=== PATIENT | female | born 1960 | race Caucasian/White ===

== ENCOUNTER 2021-06-07 09:25 | Inpatient (IN) | payer BC ==
[~2021-06-07] VITALS: Ht 162.6 cm; Wt 72.6 kg
[~2021-06-07 09:25] MED LIST: AMBIEN5 MG PO; AMLODIPINE BESYL5 MG PO; CARTIA XT180 MG PO; CARVEDILOL12.5 MG PO; ELIQUIS PO; LASIX20 MG PO; LIPITOR10 MG PO; SERTRALINE HCL50 MG PO; SODIUM CHLORIDE1 GM PO; SPIRONOLACTONE25 MG PO
[2021-06-07 09:56] LABS: BASOPHILS % 0.2 % (0.0-1.0); EOSINOPHILS # (AUTO) 0.1 (0.0-0.4); EOSINOPHILS % 0.6 % (0.0-6.0); HEMATOCRIT 36.3 % (34.2-44.1); HEMOGLOBIN 12.6 g/dL (12.0-16.0); LYMPHOCYTES # (AUTO) 1.1 (1.0-3.2); LYMPHOCYTES % 8.5 % (18.0-39.1); MEAN CORPUSCULAR HEMOGLOBIN 35.4 pg (28-32); MEAN CORPUSCULAR HGB CONC 34.7 g/dL (31-35); MONOCYTES # (AUTO) 0.9 (0.2-0.8); MONOCYTES % 7.2 % (4.4-11.3); NEUTROPHILS # (AUTO) 10.6 (2.1-6.9); NEUTROPHILS % 80.7 % (38.7-80.0); PLATELET COUNT 266 x10e3/uL (140-360); RED BLOOD COUNT 3.56 x10e6/uL (3.6-5.1); RED CELL DISTRIBUTION WIDTH 12.1 % (11.7-14.4)
[2021-06-07] MEDS ORDERED: SODIUM CHLORIDE 0.9% 500ML 500 ML IV ONE (11:00)
[2021-06-07 11:12] LABS: CLARITY,URINE CLEAR (CLEAR); COLOR,URINE YELLOW (YELLOW)
[2021-06-07 11:13] LABS: BACTERIA,URINE FEW /HPF; EPITHELIAL CELLS,URINE FEW /LPF; KETONES,URINE NEGATIVE (NEGATIVE); LEUKOCYTE ESTERASE ,URINE NEGATIVE (NEGATIVE); NITRITE,URINE NEGATIVE (NEGATIVE); PROTEIN,URINE DIPSTICK NEGATIVE (NEGATIVE); URINE UROBILINOGEN 0.2 mg/dL (0.2 - 1); WBC,URINE (MAN) 0-5 /HPF (0-5)
[2021-06-07 11:28] LABS: ALBUMIN 3.6 g/dL (3.5-5.0); ALBUMIN/GLOBULIN RATIO 1.1 (0.8-2.0); CALCIUM 8.6 mg/dL (8.4-10.2); CREATININE, SERUM 0.82 mg/dL (0.57-1.11)
[2021-06-07] MEDS ORDERED: Morphine 4mg Syringe 4 MG/ML INJ IV STA (12:29)
[2021-06-07] MEDS ORDERED: ONDANSETRON HCL INJ 2MG/ML 2ML 2 MG/ML VIAL IV STA (12:29)
[2021-06-07] MEDS: CEFTRIAXONE 1 GM in SODIUM CHLORIDE 0.9% 50ML 50 ML IV SCH (13:03)
[2021-06-07] MEDS ORDERED: ALBUTEROL SULF 0.083% NEB SOLN 3 ML NEB NEB PRN (13:15)
[2021-06-07 14:16] VITALS: BP 144/85
[2021-06-07] MEDS ORDERED: HYDROXYZINE HCL25 MG PO (14:22)
[2021-06-07] MEDS ORDERED: NEURONTIN300 MG PO (14:22)
[2021-06-07] MEDS ORDERED: ACETAMIN-CODE12.5 ML (14:29)
[2021-06-07 14:30] VITALS: BP 144/85
[2021-06-07] MEDS ORDERED: GADOBENATE DIMEGLUMINE 1 ML IV ONE (14:33)
[2021-06-07] MEDS ORDERED: tylenol 3 PO (14:34)
[2021-06-07] MEDS ORDERED: TYLENOL PO PRN (14:45)
[2021-06-07] MEDS ORDERED: HYDROXYZINE HCL 25 MG TAB PO PRN (14:45)
[2021-06-07 15:00] VITALS: BP 144/85
[2021-06-07] MEDS: SODIUM CHLORIDE 0.9% 1000ML 1,000 ML IV SCH ×2 (15:40→23:12)
[2021-06-07] MEDS: ACETAMINOPHEN/CODEINE 300MG - 30MG TAB PO PRN ×2 (15:50→23:12)
[2021-06-07] MEDS: GABAPENTIN 300 MG CAP PO SCH ×2 (16:00→20:21)
[2021-06-07] MEDS: SPIRONOLACTONE 25 MG TAB PO SCH (16:01)
[2021-06-07] MEDS: CARVEDILOL 12.5 MG TAB PO SCH (16:02)
[2021-06-07 16:57] LABS: CREATINE KINASE MB 0.9 ng/mL (0-5.0)
[2021-06-07] MEDS: HYDROMORPHONE 1MG/1ML INJ IV PRN ×2 (17:00→20:21)
[2021-06-07 19:54] VITALS: BP 144/85
[2021-06-07 20:00] VITALS: BP 141/80
[2021-06-07] MEDS: ZOLPIDEM TARTRATE 10 MG TAB PO PRN (23:12)
[2021-06-08] VITALS (9 sets, daily range): BP systolic 106–150; BP diastolic 46–89
[2021-06-08] MEDS: HYDROMORPHONE 1MG/1ML INJ IV PRN ×6 (02:45→21:31)
[2021-06-08] MEDS: SODIUM CHLORIDE 0.9% 1000ML 1,000 ML IV SCH ×3 (06:11→21:15)
[2021-06-08] MEDS: ACETAMINOPHEN/CODEINE 300MG - 30MG TAB PO PRN ×2 (06:30→13:00)
[2021-06-08 07:22] LABS: BASOPHILS % 0.5 % (0.0-1.0); EOSINOPHILS # (AUTO) 0.4 (0.0-0.4); EOSINOPHILS % 4.3 % (0.0-6.0); HEMATOCRIT 37.2 % (34.2-44.1); HEMOGLOBIN 12.4 g/dL (12.0-16.0); LYMPHOCYTES # (AUTO) 1.1 (1.0-3.2); LYMPHOCYTES % 13.3 % (18.0-39.1); MEAN CORPUSCULAR HEMOGLOBIN 35.1 pg (28-32); MEAN CORPUSCULAR HGB CONC 33.3 g/dL (31-35); MEAN CORPUSCULAR VOLUME 105.4 fL (81-99); MONOCYTES # (AUTO) 0.7 (0.2-0.8); MONOCYTES % 8.3 % (4.4-11.3); NEUTROPHILS # (AUTO) 5.8 (2.1-6.9); NEUTROPHILS % 71.1 % (38.7-80.0); PLATELET COUNT 246 x10e3/uL (140-360); RED BLOOD COUNT 3.53 x10e6/uL (3.6-5.1); RED CELL DISTRIBUTION WIDTH 12.5 % (11.7-14.4)
[2021-06-08 07:41] LABS: ALBUMIN 3.4 g/dL (3.5-5.0); ALBUMIN/GLOBULIN RATIO 1.1 (0.8-2.0); ANION GAP 14.1 mmol/L (8-16); CALCIUM 8.7 mg/dL (8.4-10.2); CREATININE, SERUM 0.81 mg/dL (0.57-1.11); POTASSIUM 4.1 mmol/L (3.5-5.1)
[2021-06-08 07:53] LABS: CREATINE KINASE MB 0.7 ng/mL (0-5.0)
[2021-06-08] MEDS ORDERED: AMLODIPINE BESYLATE 5 MG TAB PO SCH (09:00)
[2021-06-08] MEDS: SPIRONOLACTONE 25 MG TAB PO SCH ×2 (09:34→17:24)
[2021-06-08] MEDS: CEFTRIAXONE 1 GM in SODIUM CHLORIDE 0.9% 50ML 50 ML IV SCH (09:34)
[2021-06-08] MEDS: FUROSEMIDE 20 MG TAB PO SCH (09:44)
[2021-06-08] MEDS: DILTIAZEM HCL 180 MG CAP ER PO SCH (09:44)
[2021-06-08] MEDS: CARVEDILOL 12.5 MG TAB PO SCH ×2 (09:44→16:53)
[2021-06-08] MEDS: GABAPENTIN 300 MG CAP PO SCH ×3 (09:44→21:30)
[2021-06-08] MEDS: SODIUM CHLORIDE 1 GM TAB PO SCH (09:44)
[2021-06-09] VITALS (9 sets, daily range): BP systolic 110–131; BP diastolic 71–80
[2021-06-09] MEDS: ZOLPIDEM TARTRATE 10 MG TAB PO PRN ×2 (00:28→20:49)
[2021-06-09] MEDS: HYDROMORPHONE 1MG/1ML INJ IV PRN ×6 (00:28→22:45)
[2021-06-09] MEDS: SODIUM CHLORIDE 0.9% 1000ML 1,000 ML IV SCH ×4 (00:28→20:39)
[2021-06-09] MEDS: CARVEDILOL 12.5 MG TAB PO SCH ×2 (08:26→17:14)
[2021-06-09] MEDS: CEFTRIAXONE 1 GM in SODIUM CHLORIDE 0.9% 50ML 50 ML IV SCH (08:47)
[2021-06-09] MEDS: SPIRONOLACTONE 25 MG TAB PO SCH ×2 (08:47→17:14)
[2021-06-09] MEDS: DILTIAZEM HCL 180 MG CAP ER PO SCH (08:48)
[2021-06-09] MEDS: SODIUM CHLORIDE 1 GM TAB PO SCH (08:48)
[2021-06-09] MEDS: FUROSEMIDE 20 MG TAB PO SCH (08:48)
[2021-06-09] MEDS: GABAPENTIN 300 MG CAP PO SCH ×3 (08:48→20:39)
[2021-06-10] VITALS (7 sets, daily range): BP systolic 100–114; BP diastolic 67–71
[2021-06-10] MEDS: HYDROMORPHONE 1MG/1ML INJ IV PRN ×5 (02:54→20:40)
[2021-06-10] MEDS: SODIUM CHLORIDE 0.9% 1000ML 1,000 ML IV SCH ×2 (03:16→12:25)
[2021-06-10 05:58] LABS: BASOPHILS # (AUTO) 0.1 (0.0-0.1); BASOPHILS % 0.8 % (0.0-1.0); EOSINOPHILS # (AUTO) 0.3 (0.0-0.4); EOSINOPHILS % 3.8 % (0.0-6.0); HEMATOCRIT 37.9 % (34.2-44.1); HEMOGLOBIN 11.8 g/dL (12.0-16.0); LYMPHOCYTES # (AUTO) 0.6 (1.0-3.2); LYMPHOCYTES % 8.1 % (18.0-39.1); MEAN CORPUSCULAR HEMOGLOBIN 35.8 pg (28-32); MEAN CORPUSCULAR HGB CONC 31.1 g/dL (31-35); MEAN CORPUSCULAR VOLUME 114.8 fL (81-99); MONOCYTES # (AUTO) 0.4 (0.2-0.8); NEUTROPHILS % 80.3 % (38.7-80.0); PLATELET COUNT 164 x10e3/uL (140-360); RED CELL DISTRIBUTION WIDTH 12.5 % (11.7-14.4)
[2021-06-10] MEDS: KETOROLAC TROMETHAMINE 30 MG/ML VIAL IM SCH ×2 (06:19→14:26)
[2021-06-10 06:28] LABS: ALBUMIN 2.8 g/dL (3.5-5.0); ALBUMIN/GLOBULIN RATIO 1.3 (0.8-2.0); ANION GAP 12.7 mmol/L (8-16); CALCIUM 7.5 mg/dL (8.4-10.2); CREATININE, SERUM 0.76 mg/dL (0.57-1.11); MAGNESIUM 1.9 MG/DL (1.3-2.1); POTASSIUM 3.7 mmol/L (3.5-5.1)
[2021-06-10] MEDS: FUROSEMIDE 20 MG TAB PO SCH (08:04)
[2021-06-10] MEDS: GABAPENTIN 300 MG CAP PO SCH ×3 (08:04→20:40)
[2021-06-10] MEDS: SPIRONOLACTONE 25 MG TAB PO SCH ×2 (08:04→16:17)
[2021-06-10] MEDS: CEFTRIAXONE 1 GM in SODIUM CHLORIDE 0.9% 50ML 50 ML IV SCH (08:04)
[2021-06-10] MEDS: SODIUM CHLORIDE 1 GM TAB PO SCH (08:04)
[2021-06-10 08:07] LABS: LYMPHOCYTES % (MANUAL) 10 % (19-48); MONOCYTES % (MANUAL) 3 % (3.4-9.0); NEUTROPHILS % (MANUAL) 86 % (40-74); PLATELET ESTIMATE ADEQUATE
[2021-06-10 08:08] LABS: PLATELET MORPHOLOGY COMMENT NORMAL; RBC MORPHOLOGY COMMENT NORMAL
[2021-06-10] MEDS: DILTIAZEM HCL 180 MG CAP ER PO SCH (08:10)
[2021-06-10] MEDS: CARVEDILOL 12.5 MG TAB PO SCH ×2 (08:10→16:17)
[2021-06-10] MEDS: AZITHROMYCIN 250 MG TAB PO SCH (12:25)
[2021-06-10] MEDS: KETOROLAC TROMETHAMINE 30 MG/ML VIAL IV SCH (21:43)
[2021-06-11] VITALS (8 sets, daily range): BP systolic 92–138; BP diastolic 58–76
[2021-06-11] MEDS: HYDROMORPHONE 1MG/1ML INJ IV PRN (01:54)
[2021-06-11] MEDS: SODIUM CHLORIDE 0.9% 1000ML 1,000 ML IV SCH ×4 (01:54→21:10)
[2021-06-11] MEDS: KETOROLAC TROMETHAMINE 30 MG/ML VIAL IV SCH ×3 (06:47→21:10)
[2021-06-11 07:34] LABS: ALBUMIN 2.5 g/dL (3.5-5.0); ANION GAP 13.9 mmol/L (8-16); CALCIUM 7.4 mg/dL (8.4-10.2); CREATININE, SERUM 0.77 mg/dL (0.57-1.11); POTASSIUM 3.9 mmol/L (3.5-5.1)
[2021-06-11] MEDS: DILTIAZEM HCL 180 MG CAP ER PO SCH (09:00)
[2021-06-11] MEDS: CARVEDILOL 12.5 MG TAB PO SCH ×2 (09:00→17:22)
[2021-06-11] MEDS: CEFTRIAXONE 1 GM in SODIUM CHLORIDE 0.9% 50ML 50 ML IV SCH (09:06)
[2021-06-11] MEDS: SPIRONOLACTONE 25 MG TAB PO SCH ×2 (09:07→17:22)
[2021-06-11] MEDS: FUROSEMIDE 20 MG TAB PO SCH (09:09)
[2021-06-11] MEDS: SODIUM CHLORIDE 1 GM TAB PO SCH (09:09)
[2021-06-11] MEDS: GABAPENTIN 300 MG CAP PO SCH ×3 (09:11→21:10)
[2021-06-11] MEDS: AZITHROMYCIN 250 MG TAB PO SCH (12:16)
[2021-06-11] MEDS: ACETAMINOPHEN/CODEINE 300MG - 30MG TAB PO PRN (14:15)
[2021-06-11] MEDS: ZOLPIDEM TARTRATE 10 MG TAB PO PRN (21:10)
[2021-06-12] VITALS (8 sets, daily range): BP systolic 105–142; BP diastolic 65–90
[2021-06-12] MEDS: SODIUM CHLORIDE 0.9% 1000ML 1,000 ML IV SCH ×3 (05:15→21:15)
[2021-06-12 05:52] LABS: BASOPHILS # (AUTO) 0.1 (0.0-0.1); BASOPHILS % 0.7 % (0.0-1.0); EOSINOPHILS # (AUTO) 0.4 (0.0-0.4); HEMATOCRIT 37.5 % (34.2-44.1); HEMOGLOBIN 12.3 g/dL (12.0-16.0); LYMPHOCYTES # (AUTO) 0.8 (1.0-3.2); LYMPHOCYTES % 9.6 % (18.0-39.1); MEAN CORPUSCULAR HEMOGLOBIN 35.9 pg (28-32); MEAN CORPUSCULAR HGB CONC 32.8 g/dL (31-35); MEAN CORPUSCULAR VOLUME 109.3 fL (81-99); MONOCYTES # (AUTO) 0.5 (0.2-0.8); MONOCYTES % 5.8 % (4.4-11.3); NEUTROPHILS # (AUTO) 6.2 (2.1-6.9); NEUTROPHILS % 75.6 % (38.7-80.0); PLATELET COUNT 179 x10e3/uL (140-360); RED BLOOD COUNT 3.43 x10e6/uL (3.6-5.1); RED CELL DISTRIBUTION WIDTH 12.5 % (11.7-14.4)
[2021-06-12 06:27] LABS: ALBUMIN 2.7 g/dL (3.5-5.0); ALBUMIN/GLOBULIN RATIO 1.1 (0.8-2.0); ANION GAP 13.8 mmol/L (8-16); CALCIUM 7.6 mg/dL (8.4-10.2); CREATININE, SERUM 0.79 mg/dL (0.57-1.11); POTASSIUM 3.8 mmol/L (3.5-5.1)
[2021-06-12] MEDS: HYDROMORPHONE 1MG/1ML INJ IV PRN (06:45)
[2021-06-12] MEDS: METHYLPREDNISOLONE SOD SUCC 125 MG/2ML VIAL IV SCH ×3 (06:49→21:01)
[2021-06-12 07:37] LABS: EOSINOPHILS % (MANUAL) 1 % (0-7); LYMPHOCYTES % (MANUAL) 4 % (19-48); MONOCYTES % (MANUAL) 3 % (3.4-9.0); NEUTROPHILS % (MANUAL) 92 % (40-74); PLATELET ESTIMATE ADEQUATE
[2021-06-12 07:38] LABS: PLATELET MORPHOLOGY COMMENT NORMAL; RBC MORPHOLOGY COMMENT NORMAL
[2021-06-12] MEDS: CEFTRIAXONE 1 GM in SODIUM CHLORIDE 0.9% 50ML 50 ML IV SCH (09:15)
[2021-06-12] MEDS: SPIRONOLACTONE 25 MG TAB PO SCH ×2 (09:15→16:56)
[2021-06-12] MEDS: FUROSEMIDE 20 MG TAB PO SCH (09:16)
[2021-06-12] MEDS: DILTIAZEM HCL 180 MG CAP ER PO SCH (09:16)
[2021-06-12] MEDS: GABAPENTIN 300 MG CAP PO SCH ×3 (09:16→20:22)
[2021-06-12] MEDS: CARVEDILOL 12.5 MG TAB PO SCH ×2 (09:16→16:56)
[2021-06-12] MEDS: SODIUM CHLORIDE 1 GM TAB PO SCH (09:16)
[2021-06-12] MEDS ORDERED: ACETAMINOPHEN 325 MG TAB PO PRN (11:45)
[2021-06-12] MEDS: AZITHROMYCIN 250 MG TAB PO SCH (16:56)
[2021-06-12] MEDS: ZOLPIDEM TARTRATE 10 MG TAB PO PRN (20:22)
[2021-06-13] VITALS: BP 145/85
[2021-06-13 04:00] VITALS: BP 136/78
[2021-06-13] MEDS: SODIUM CHLORIDE 0.9% 1000ML 1,000 ML IV SCH (05:48)
[2021-06-13] MEDS: METHYLPREDNISOLONE SOD SUCC 125 MG/2ML VIAL IV SCH (05:49)
[2021-06-13 07:41] VITALS: BP 136/93
[2021-06-13 08:07] VITALS: BP 136/93
[2021-06-13] MEDS: CEFTRIAXONE 1 GM in SODIUM CHLORIDE 0.9% 50ML 50 ML IV SCH (08:51)
[2021-06-13] MEDS: DILTIAZEM HCL 180 MG CAP ER PO SCH (08:52)
[2021-06-13] MEDS: SODIUM CHLORIDE 1 GM TAB PO SCH (08:52)
[2021-06-13] MEDS: SPIRONOLACTONE 25 MG TAB PO SCH (08:52)
[2021-06-13] MEDS: CARVEDILOL 12.5 MG TAB PO SCH (08:52)
[2021-06-13] MEDS: FUROSEMIDE 20 MG TAB PO SCH (08:52)
[2021-06-13] MEDS: GABAPENTIN 300 MG CAP PO SCH (08:52)
[2021-06-13 11:54] VITALS: BP 126/84
[2021-06-13] MEDS: AZITHROMYCIN 250 MG TAB PO SCH (12:52)
== END 2021-06-13 14:05 | disposition home or self-care (01) | DRG 194 ==
LOC: ER 09:30 → ERHOLD 13:05 → MED/SURG3 14:07
PROVIDERS: ADMIT Internal Medicine; ATTEND Internal Medicine
DX: J18.9 Pneumonia, unspecified organism (principal); M84.48XA Pathological fracture, other site, initial encounter for fracture; E87.1 Hypo-osmolality and hyponatremia; I10 Essential (primary) hypertension; I48.91 Unspecified atrial fibrillation; R25.1 Tremor, unspecified; M48.061 Spinal stenosis, lumbar region without neurogenic claudication; M51.16 Intervertebral disc disorders with radiculopathy, lumbar region; D64.9 Anemia, unspecified; L27.1 Localized skin eruption due to drugs and medicaments taken internally; Z20.822 Contact with and (suspected) exposure to COVID-19
CPT/HCPCS: 36415; 71045; 72158; 76705; 80053; 81001; 82550; 82553; 83605; 83735; 84484; 85025; 87040; 87086; 93005; 94799; 97139; 99285; J0456; J0696; J1170; J1885; J2270; J2405; J2930; J7030; J7040; J7050; U0002

== ENCOUNTER 2021-10-13 04:48 | Inpatient (IN) | payer BC ==
[~2021-10-13] VITALS: Ht 162.6 cm; Wt 76.7 kg
[2021-10-13] VITALS (7 sets, daily range): BP systolic 89–109; BP diastolic 61–89
[~2021-10-13 04:48] MED LIST changes: +ACETAMIN-CODE12.5 ML; +HYDROXYZINE HCL25 MG PO; +NEURONTIN300 MG PO; +tylenol 3 PO
[2021-10-13 05:17] LABS: BASOPHILS % 0.4 % (0.0-1.0); EOSINOPHILS # (AUTO) 0.1 (0.0-0.4); EOSINOPHILS % 1.1 % (0.0-6.0); HEMATOCRIT 40.7 % (34.2-44.1); HEMOGLOBIN 14.1 g/dL (12.0-16.0); LYMPHOCYTES # (AUTO) 0.5 (1.0-3.2); LYMPHOCYTES % 4.8 % (18.0-39.1); MEAN CORPUSCULAR HEMOGLOBIN 34.5 pg (28-32); MEAN CORPUSCULAR HGB CONC 34.6 g/dL (31-35); MEAN CORPUSCULAR VOLUME 99.5 fL (81-99); MONOCYTES # (AUTO) 0.2 (0.2-0.8); MONOCYTES % 2.2 % (4.4-11.3); NEUTROPHILS # (AUTO) 9.6 (2.1-6.9); NEUTROPHILS % 89.5 % (38.7-80.0); PLATELET COUNT 198 x10e3/uL (140-360); RED BLOOD COUNT 4.09 x10e6/uL (3.6-5.1); RED CELL DISTRIBUTION WIDTH 12.1 % (11.7-14.4)
[2021-10-13 05:30] LABS: INR 1.19; PROTHROMBIN TIME 16.2 seconds (11.9-14.5)
[2021-10-13 05:31] LABS: PARTIAL THROMBOPLASTIN TIME 29.9 seconds (23.8-35.5)
[2021-10-13 05:33] LABS: ALANINE AMINOTRANSFERASE 369 IU/L (0-55); ALBUMIN 2.7 g/dL (3.5-5.0); ALBUMIN/GLOBULIN RATIO 0.8 (0.8-2.0); ALKALINE PHOSPHATASE 84 IU/L (40-150); ANION GAP 14.7 mmol/L (8-16); BLOOD UREA NITROGEN 14 mg/dL (7-26); BUN/CREATININE RATIO 16 (6-25); CALCIUM 7.8 mg/dL (8.4-10.2); CARBON DIOXIDE 18 mmol/L (22-29); CHLORIDE 97 mmol/L (98-107); CREATINE KINASE 10 IU/L (29-168); CREATININE, SERUM 0.87 mg/dL (0.57-1.11); EST GLOMERULAR FILTRATION RATE 67 ML/MIN (60-); GLUCOSE 156 mg/dL (74-118); POTASSIUM 3.7 mmol/L (3.5-5.1); SODIUM 126 mmol/L (136-145)
[2021-10-13] MEDS ORDERED: SODIUM CHLORIDE 0.9% 1000ML 1,000 ML IV STA (05:41)
[2021-10-13 05:51] LABS: CLARITY,URINE SL CLOUDY (CLEAR); COLOR,URINE AMBER (YELLOW); KETONES,URINE TRACE (NEGATIVE); LEUKOCYTE ESTERASE ,URINE NEGATIVE (NEGATIVE); NITRITE,URINE NEGATIVE (NEGATIVE); PROTEIN,URINE DIPSTICK 2+ (NEGATIVE); URINE UROBILINOGEN >=8 mg/dL (0.2 - 1)
[2021-10-13 05:53] LABS: AMPHETAMINES SCREEN,URINE NEGATIVE (NEGATIVE); BENZODIAZEPINES SCREEN,URINE NEGATIVE (NEGATIVE); PHENCYCLIDINE SCREEN,URINE NEGATIVE (NEGATIVE)
[2021-10-13] MEDS ORDERED: SODIUM CHLORIDE 0.9% 1000ML 1,000 ML ONE (05:58)
[2021-10-13 06:00] LABS: AMORPHOUS SEDIMENT,URINE FEW (FEW); BACTERIA,URINE FEW /HPF; EPITHELIAL CELLS,URINE FEW /LPF; RBC,URINE 0-5 /HPF (0-5); WBC,URINE (MAN) 0-5 /HPF (0-5)
[2021-10-13] MEDS ORDERED: CEFEPIME 2 GM in SODIUM CHLORIDE 0.9% 100 ML IV ONE (06:00)
[2021-10-13 06:10] LABS: SALICYLATE < 5.0 mg/dL (0-30)
[2021-10-13 06:13] LABS: ABG PH 7.44 (7.35-7.45)
[2021-10-13 06:14] LABS: ABG HCO3 19 mmol/L (22-26); ABG PCO2 28 mmHg (35-45); ABG PO2 67 mmHg (80-105); ABG TCO2 20
[2021-10-13] MEDS ORDERED: IOPAMIDOL 370 MG/ML 100 ML INFUS..BTL INJ ONE (06:37)
[2021-10-13] MEDS ORDERED: SODIUM CHLORIDE 0.9% 1000ML 1,000 ML IV ONE (06:45)
[2021-10-13] MEDS: ALBUTEROL SULF 0.083% NEB SOLN 3 ML NEB NEB SCH ×5 (06:55→23:15)
[2021-10-13] MEDS ORDERED: ENOXAPARIN INJ 80 MG/0.8 ML SYR SC ONE (07:00)
[2021-10-13] MEDS ORDERED: SODIUM CHLORIDE 0.9% 1000ML 500 ML IV ONE (08:15)
[2021-10-13] MEDS ORDERED: CARVEDILOL 12.5 MG TAB PO ONE (08:15)
[2021-10-13] MEDS ORDERED: SODIUM CHLORIDE 0.9% 500ML 500 ML ONE (08:22)
[2021-10-13] MEDS ORDERED: TIZANIDINE HCL4 MG PO (08:54)
[2021-10-13] MEDS ORDERED: AMITRIPTYLINE H10 MG PO (08:54)
[2021-10-13] MEDS ORDERED: albuterol INH (09:23)
[2021-10-13] MEDS: HYDROCODONE/APAP 10MG-325MG TAB PO PRN ×3 (10:00→20:45)
[2021-10-13 11:16] LABS: FREE THYROXINE INDEX 3.323 (1.4-3.8); THYROID STIMULATING HORMONE 3.118 uIU/mL (0.350-4.940)
[2021-10-13] MEDS ORDERED: SODIUM CHLORIDE 0.9% 250ML 250 ML ONE (13:30)
[2021-10-13] MEDS: CEFEPIME 2 GM in SODIUM CHLORIDE 0.9% 100 ML IV SCH ×2 (14:00→22:00)
[2021-10-13 14:16] LABS: CREATINE KINASE 14 IU/L (29-168)
[2021-10-13] MEDS ORDERED: CARVEDILOL 12.5 MG TAB PO SCH (17:00)
[2021-10-13] MEDS: AMITRIPTYLINE HCL 10 MG TAB PO SCH (21:00)
[2021-10-14 01:59] LABS: ANION GAP 12.3 mmol/L (8-16); CALCIUM 7.9 mg/dL (8.4-10.2); CREATININE, SERUM 0.68 mg/dL (0.57-1.11); POTASSIUM 3.3 mmol/L (3.5-5.1)
[2021-10-14 02:01] LABS: CREATINE KINASE 9 IU/L (29-168)
[2021-10-14] MEDS: ALBUTEROL SULF 0.083% NEB SOLN 3 ML NEB NEB SCH ×6 (03:25→22:15)
[2021-10-14] MEDS: HYDROCODONE/APAP 10MG-325MG TAB PO PRN ×3 (03:48→21:30)
[2021-10-14 05:19] VITALS: BP 114/83
[2021-10-14] MEDS: CEFEPIME 2 GM in SODIUM CHLORIDE 0.9% 100 ML IV SCH ×3 (06:00→22:13)
[2021-10-14 06:02] LABS: BASOPHILS # (AUTO) 0.1 (0.0-0.1); BASOPHILS % 0.7 % (0.0-1.0); EOSINOPHILS # (AUTO) 0.3 (0.0-0.4); EOSINOPHILS % 3.7 % (0.0-6.0); HEMATOCRIT 37.4 % (34.2-44.1); HEMOGLOBIN 12.8 g/dL (12.0-16.0); LYMPHOCYTES # (AUTO) 0.7 (1.0-3.2); LYMPHOCYTES % 9.9 % (18.0-39.1); MEAN CORPUSCULAR HEMOGLOBIN 34.3 pg (28-32); MEAN CORPUSCULAR HGB CONC 34.2 g/dL (31-35); MEAN CORPUSCULAR VOLUME 100.3 fL (81-99); MONOCYTES # (AUTO) 0.5 (0.2-0.8); MONOCYTES % 6.6 % (4.4-11.3); NEUTROPHILS # (AUTO) 5.7 (2.1-6.9); NEUTROPHILS % 77.3 % (38.7-80.0); PLATELET COUNT 193 x10e3/uL (140-360); RED BLOOD COUNT 3.73 x10e6/uL (3.6-5.1); RED CELL DISTRIBUTION WIDTH 12.3 % (11.7-14.4)
[2021-10-14 06:29] LABS: ALBUMIN 2.7 g/dL (3.5-5.0); ALBUMIN/GLOBULIN RATIO 0.8 (0.8-2.0); ANION GAP 13.1 mmol/L (8-16); CALCIUM 8.1 mg/dL (8.4-10.2); CREATININE, SERUM 0.63 mg/dL (0.57-1.11); POTASSIUM 3.1 mmol/L (3.5-5.1)
[2021-10-14 07:01] LABS: EOSINOPHILS % (MANUAL) 1 % (0-7); LYMPHOCYTES % (MANUAL) 6 % (19-48); MONOCYTES % (MANUAL) 6 % (3.4-9.0); NEUTROPHILS % (MANUAL) 87 % (40-74); PLATELET ESTIMATE ADEQUATE
[2021-10-14 07:02] LABS: PLATELET MORPHOLOGY COMMENT NORMAL; RBC MORPHOLOGY COMMENT NORMAL
[2021-10-14 08:23] VITALS: BP 106/76
[2021-10-14 08:30] VITALS: BP 106/76
[2021-10-14] MEDS ORDERED: DILTIAZEM HCL 180 MG CAP ER PO SCH (09:00)
[2021-10-14] MEDS ORDERED: CEFTRIAXONE 2 GM in SODIUM CHLORIDE 0.9% 100 ML IV SCH (09:00)
[2021-10-14] MEDS: SPIRONOLACTONE 25 MG TAB PO SCH ×2 (09:23→16:56)
[2021-10-14] MEDS: AMLODIPINE BESYLATE 5 MG TAB PO SCH (09:24)
[2021-10-14] MEDS: FUROSEMIDE 20 MG TAB PO SCH (09:24)
[2021-10-14] MEDS: AZITHROMYCIN 250 MG TAB PO SCH (09:24)
[2021-10-14] MEDS: SODIUM CHLORIDE 1 GM TAB PO SCH (09:24)
[2021-10-14] MEDS ORDERED: POTASSIUM CHLORIDE 20MEQ/100ML 100 ML IV PRN (10:15)
[2021-10-14 12:42] VITALS: BP 125/79
[2021-10-14 15:13] LABS: CREATINE KINASE 7 IU/L (29-168)
[2021-10-14 16:08] VITALS: BP 109/83
[2021-10-14 20:00] VITALS: BP 119/75
[2021-10-14] MEDS: AMITRIPTYLINE HCL 10 MG TAB PO SCH (21:30)
[2021-10-14] MEDS: TIZANIDINE HCL 4 MG TAB PO PRN (23:00)
[2021-10-15] VITALS (8 sets, daily range): BP systolic 96–135; BP diastolic 70–97
[2021-10-15] MEDS: ALBUTEROL SULF 0.083% NEB SOLN 3 ML NEB NEB SCH ×6 (02:00→23:10)
[2021-10-15] MEDS: HYDROCODONE/APAP 10MG-325MG TAB PO PRN ×3 (05:00→21:47)
[2021-10-15] MEDS: CEFEPIME 2 GM in SODIUM CHLORIDE 0.9% 100 ML IV SCH ×3 (06:18→21:14)
[2021-10-15] MEDS: AMLODIPINE BESYLATE 5 MG TAB PO SCH ×2 (09:00→09:19)
[2021-10-15] MEDS: AZITHROMYCIN 250 MG TAB PO SCH (09:19)
[2021-10-15] MEDS: FUROSEMIDE 20 MG TAB PO SCH (09:19)
[2021-10-15] MEDS: SPIRONOLACTONE 25 MG TAB PO SCH ×2 (09:19→16:35)
[2021-10-15] MEDS: SODIUM CHLORIDE 1 GM TAB PO SCH (09:19)
[2021-10-15] MEDS: AMITRIPTYLINE HCL 10 MG TAB PO SCH (21:09)
[2021-10-16] VITALS (7 sets, daily range): BP systolic 124–147; BP diastolic 84–105
[2021-10-16] MEDS: ALBUTEROL SULF 0.083% NEB SOLN 3 ML NEB NEB SCH ×4 (02:30→20:20)
[2021-10-16] MEDS: CEFEPIME 2 GM in SODIUM CHLORIDE 0.9% 100 ML IV SCH ×3 (05:17→21:25)
[2021-10-16] MEDS ORDERED: SODIUM CHLORIDE 0.9% 250ML 250 ML ONE (05:23)
[2021-10-16 05:55] LABS: BASOPHILS # (AUTO) 0.1 (0.0-0.1); BASOPHILS % 1.4 % (0.0-1.0); EOSINOPHILS # (AUTO) 0.3 (0.0-0.4); EOSINOPHILS % 3.7 % (0.0-6.0); HEMATOCRIT 40.5 % (34.2-44.1); HEMOGLOBIN 13.6 g/dL (12.0-16.0); LYMPHOCYTES # (AUTO) 1.7 (1.0-3.2); LYMPHOCYTES % 22.2 % (18.0-39.1); MEAN CORPUSCULAR HGB CONC 33.6 g/dL (31-35); MEAN CORPUSCULAR VOLUME 101.3 fL (81-99); MONOCYTES # (AUTO) 0.8 (0.2-0.8); MONOCYTES % 9.8 % (4.4-11.3); NEUTROPHILS # (AUTO) 4.8 (2.1-6.9); PLATELET COUNT 218 x10e3/uL (140-360); RED CELL DISTRIBUTION WIDTH 12.5 % (11.7-14.4)
[2021-10-16 06:19] LABS: ALBUMIN 2.8 g/dL (3.5-5.0); ALBUMIN/GLOBULIN RATIO 0.8 (0.8-2.0); ANION GAP 14.5 mmol/L (8-16); CALCIUM 8.2 mg/dL (8.4-10.2); CREATININE, SERUM 0.77 mg/dL (0.57-1.11); POTASSIUM 3.5 mmol/L (3.5-5.1)
[2021-10-16] MEDS: HYDROCODONE/APAP 10MG-325MG TAB PO PRN ×2 (08:39→12:57)
[2021-10-16] MEDS: FUROSEMIDE 20 MG TAB PO SCH (08:39)
[2021-10-16] MEDS: AZITHROMYCIN 250 MG TAB PO SCH (08:39)
[2021-10-16] MEDS: SODIUM CHLORIDE 1 GM TAB PO SCH (08:39)
[2021-10-16] MEDS: SPIRONOLACTONE 25 MG TAB PO SCH ×2 (08:39→16:35)
[2021-10-16] MEDS: AMLODIPINE BESYLATE 5 MG TAB PO SCH (08:39)
[2021-10-16] MEDS: GUAIFENESIN/DEXTROMETHORPHAN LIQD 5 ML UDC PO PRN ×3 (08:44→16:56)
[2021-10-16] MEDS ORDERED: ALBUTEROL SULF 0.083% NEB SOLN 3 ML NEB NEB PRN (10:00)
[2021-10-16] MEDS ORDERED: DILTIAZEM HCL 180 MG CAP ER PO SCH (20:00)
[2021-10-16] MEDS: CARVEDILOL 12.5 MG TAB PO SCH (20:16)
[2021-10-16] MEDS: DILTIAZEM HCL 180 MG CAP ER PO SCH (21:00)
[2021-10-16] MEDS ORDERED: DIGOXIN INJ 0.25 MG/ML 2 ML AMP IV ONE (21:05)
[2021-10-16] MEDS ORDERED: CARVEDILOL 12.5 MG TAB PO ONE (21:05)
[2021-10-16] MEDS: APIXABAN 5 MG TABLET PO SCH (21:22)
[2021-10-16] MEDS: AMITRIPTYLINE HCL 10 MG TAB PO SCH (21:22)
[2021-10-17] VITALS (7 sets, daily range): BP systolic 90–125; BP diastolic 64–98
[2021-10-17] MEDS: ALBUTEROL SULF 0.083% NEB SOLN 3 ML NEB NEB SCH ×4 (00:30→19:45)
[2021-10-17] MEDS: CEFEPIME 2 GM in SODIUM CHLORIDE 0.9% 100 ML IV SCH ×3 (06:00→21:30)
[2021-10-17 06:25] LABS: BASOPHILS # (AUTO) 0.1 (0.0-0.1); BASOPHILS % 1.4 % (0.0-1.0); EOSINOPHILS # (AUTO) 0.4 (0.0-0.4); EOSINOPHILS % 4.8 % (0.0-6.0); HEMOGLOBIN 13.5 g/dL (12.0-16.0); LYMPHOCYTES # (AUTO) 1.9 (1.0-3.2); LYMPHOCYTES % 22.1 % (18.0-39.1); MEAN CORPUSCULAR HEMOGLOBIN 34.2 pg (28-32); MEAN CORPUSCULAR HGB CONC 33.8 g/dL (31-35); MEAN CORPUSCULAR VOLUME 101.3 fL (81-99); MONOCYTES % 11.5 % (4.4-11.3); NEUTROPHILS # (AUTO) 4.9 (2.1-6.9); NEUTROPHILS % 57.3 % (38.7-80.0); PLATELET COUNT 215 x10e3/uL (140-360); RED BLOOD COUNT 3.95 x10e6/uL (3.6-5.1); RED CELL DISTRIBUTION WIDTH 12.4 % (11.7-14.4)
[2021-10-17 06:54] LABS: ALBUMIN 2.7 g/dL (3.5-5.0); ALBUMIN/GLOBULIN RATIO 0.8 (0.8-2.0); ANION GAP 11.6 mmol/L (8-16); CALCIUM 8.3 mg/dL (8.4-10.2); CREATININE, SERUM 0.71 mg/dL (0.57-1.11); MAGNESIUM 1.8 MG/DL (1.3-2.1); POTASSIUM 3.6 mmol/L (3.5-5.1)
[2021-10-17] MEDS ORDERED: CARVEDILOL 12.5 MG TAB PO SCH (09:00)
[2021-10-17] MEDS ORDERED: DILTIAZEM HCL 180 MG CAP ER PO SCH (09:00)
[2021-10-17] MEDS: AMLODIPINE BESYLATE 5 MG TAB PO SCH (09:10)
[2021-10-17] MEDS: SODIUM CHLORIDE 1 GM TAB PO SCH (09:10)
[2021-10-17] MEDS: FUROSEMIDE 20 MG TAB PO SCH (09:10)
[2021-10-17] MEDS: SPIRONOLACTONE 25 MG TAB PO SCH ×2 (09:10→17:00)
[2021-10-17] MEDS: APIXABAN 5 MG TABLET PO SCH ×2 (09:10→17:00)
[2021-10-17] MEDS: CARVEDILOL 12.5 MG TAB PO SCH ×2 (09:11→17:29)
[2021-10-17] MEDS: HYDROCODONE/APAP 10MG-325MG TAB PO PRN ×2 (14:43→21:29)
[2021-10-17] MEDS: AMITRIPTYLINE HCL 10 MG TAB PO SCH (21:29)
[2021-10-17] MEDS: DILTIAZEM HCL 180 MG CAP ER PO SCH (21:29)
[2021-10-18] VITALS (7 sets, daily range): BP systolic 97–149; BP diastolic 68–89
[2021-10-18] MEDS: ALBUTEROL SULF 0.083% NEB SOLN 3 ML NEB NEB SCH ×4 (00:09→19:45)
[2021-10-18] MEDS: CEFEPIME 2 GM in SODIUM CHLORIDE 0.9% 100 ML IV SCH ×3 (06:30→22:00)
[2021-10-18] MEDS: APIXABAN 5 MG TABLET PO SCH ×2 (09:08→17:00)
[2021-10-18] MEDS: AMLODIPINE BESYLATE 5 MG TAB PO SCH (09:08)
[2021-10-18] MEDS: FUROSEMIDE 20 MG TAB PO SCH (09:08)
[2021-10-18] MEDS: SPIRONOLACTONE 25 MG TAB PO SCH ×2 (09:08→17:00)
[2021-10-18] MEDS: SODIUM CHLORIDE 1 GM TAB PO SCH (09:08)
[2021-10-18] MEDS: CARVEDILOL 12.5 MG TAB PO SCH ×2 (09:08→17:00)
[2021-10-18] MEDS: HYDROCODONE/APAP 10MG-325MG TAB PO PRN ×3 (10:30→20:16)
[2021-10-18] MEDS: BUDESONIDE 0.25 MG/2 ML NEB NEB SCH (19:45)
[2021-10-18] MEDS: DILTIAZEM HCL 180 MG CAP ER PO SCH (20:15)
[2021-10-18] MEDS: AMITRIPTYLINE HCL 10 MG TAB PO SCH (20:15)
[2021-10-18] MEDS: TIZANIDINE HCL 4 MG TAB PO PRN (20:19)
[2021-10-19] VITALS (9 sets, daily range): BP systolic 92–110; BP diastolic 70–79
[2021-10-19] MEDS: ALBUTEROL SULF 0.083% NEB SOLN 3 ML NEB NEB SCH ×4 (00:35→19:00)
[2021-10-19] MEDS: CEFEPIME 2 GM in SODIUM CHLORIDE 0.9% 100 ML IV SCH ×3 (05:25→22:34)
[2021-10-19] MEDS: HYDROCODONE/APAP 10MG-325MG TAB PO PRN ×3 (05:26→21:14)
[2021-10-19] MEDS ORDERED: SODIUM CHLORIDE 0.9% 250ML 250 ML ONE (05:32)
[2021-10-19] MEDS: BUDESONIDE 0.25 MG/2 ML NEB NEB SCH ×2 (06:36→19:15)
[2021-10-19] MEDS: FUROSEMIDE 20 MG TAB PO SCH (09:32)
[2021-10-19] MEDS: SODIUM CHLORIDE 1 GM TAB PO SCH (09:33)
[2021-10-19] MEDS: AMLODIPINE BESYLATE 5 MG TAB PO SCH (09:33)
[2021-10-19] MEDS: APIXABAN 5 MG TABLET PO SCH ×2 (09:33→16:34)
[2021-10-19] MEDS: CARVEDILOL 12.5 MG TAB PO SCH ×2 (09:34→16:34)
[2021-10-19] MEDS: SPIRONOLACTONE 25 MG TAB PO SCH ×2 (09:35→16:34)
[2021-10-19] MEDS: AMITRIPTYLINE HCL 10 MG TAB PO SCH (21:13)
[2021-10-19] MEDS: DILTIAZEM HCL 180 MG CAP ER PO SCH (21:13)
[2021-10-20] VITALS: BP 108/87
[2021-10-20] MEDS: ALBUTEROL SULF 0.083% NEB SOLN 3 ML NEB NEB SCH ×2 (01:35→06:42)
[2021-10-20 04:00] VITALS: BP 115/85
[2021-10-20] MEDS: CEFEPIME 2 GM in SODIUM CHLORIDE 0.9% 100 ML IV SCH (05:04)
[2021-10-20] MEDS: BUDESONIDE 0.25 MG/2 ML NEB NEB SCH (07:00)
[2021-10-20 08:00] VITALS: BP 118/89
[2021-10-20 08:12] VITALS: BP 118/89
[2021-10-20] MEDS: APIXABAN 5 MG TABLET PO SCH (09:31)
[2021-10-20] MEDS: SPIRONOLACTONE 25 MG TAB PO SCH (09:31)
[2021-10-20] MEDS: CARVEDILOL 12.5 MG TAB PO SCH (09:31)
[2021-10-20] MEDS: SODIUM CHLORIDE 1 GM TAB PO SCH (09:31)
[2021-10-20] MEDS: AMLODIPINE BESYLATE 5 MG TAB PO SCH (09:31)
[2021-10-20] MEDS: FUROSEMIDE 20 MG TAB PO SCH (09:31)
[2021-10-20 09:32] LABS: BASOPHILS # (AUTO) 0.1 (0.0-0.1); BASOPHILS % 1.3 % (0.0-1.0); EOSINOPHILS # (AUTO) 0.3 (0.0-0.4); EOSINOPHILS % 3.8 % (0.0-6.0); HEMATOCRIT 41.1 % (34.2-44.1); HEMOGLOBIN 13.6 g/dL (12.0-16.0); LYMPHOCYTES # (AUTO) 1.4 (1.0-3.2); MEAN CORPUSCULAR HEMOGLOBIN 34.1 pg (28-32); MEAN CORPUSCULAR HGB CONC 33.1 g/dL (31-35); MONOCYTES # (AUTO) 0.4 (0.2-0.8); MONOCYTES % 5.2 % (4.4-11.3); NEUTROPHILS # (AUTO) 5.3 (2.1-6.9); NEUTROPHILS % 66.9 % (38.7-80.0); PLATELET COUNT 232 x10e3/uL (140-360); RED BLOOD COUNT 3.99 x10e6/uL (3.6-5.1); RED CELL DISTRIBUTION WIDTH 12.7 % (11.7-14.4)
[2021-10-20 09:54] LABS: ANION GAP 13.5 mmol/L (8-16); CALCIUM 8.2 mg/dL (8.4-10.2); CREATININE, SERUM 0.77 mg/dL (0.57-1.11); POTASSIUM 3.5 mmol/L (3.5-5.1)
[2021-10-20 12:25] VITALS: BP 97/69
== END 2021-10-20 12:25 | disposition home or self-care (01) | DRG 193 ==
LOC: ER 05:04 → ERHOLD 07:03 → MED/SURG3 08:39
PROVIDERS: ADMIT Internal Medicine; ATTEND Internal Medicine
PROC: 02HV33Z Insertion of Infusion Device into Superior Vena Cava, Percutaneous Approach (ICD-10-PCS; principal; 2021-10-13)
DX: J18.9 Pneumonia, unspecified organism (principal); J96.01 Acute respiratory failure with hypoxia; G93.41 Metabolic encephalopathy; E87.1 Hypo-osmolality and hyponatremia; E87.2 Acidosis; E87.3 Alkalosis; I42.9 Cardiomyopathy, unspecified; I48.91 Unspecified atrial fibrillation; Z79.01 Long term (current) use of anticoagulants; F41.9 Anxiety disorder, unspecified; K76.0 Fatty (change of) liver, not elsewhere classified; J84.10 Pulmonary fibrosis, unspecified; D75.89 Other specified diseases of blood and blood-forming organs; Z87.891 Personal history of nicotine dependence
CPT/HCPCS: 36415; 36569; 36600; 71045; 71046; 71260; 76705; 80048; 80053; 80307; 80320; 80329; 81001; 82140; 82550; 82553; 82805; 83605; 83735; 83880; 84436; 84443; 84479; 84484; 85025; 85610; 85730; 86039; 87040; 87086; 93005; 93306; 94640; 94799; 96360; 99251; 99285; J0456; J0692; J1160; J1650; J3480; J7030; J7040; J7050; Q9967; U0002

== ENCOUNTER 2022-07-10 10:33 | Inpatient (IN) | payer SELFPAY ==
[~2022-07-10] VITALS: Ht 162.6 cm; Wt 76.2 kg
[~2022-07-10 10:33] MED LIST changes: +AMITRIPTYLINE H10 MG PO; +TIZANIDINE HCL4 MG PO; +albuterol INH
[2022-07-10 12:12] LABS: BASOPHILS % 0.3 % (0.0-1.0); EOSINOPHILS % 0.1 % (0.0-6.0); HEMATOCRIT 38.8 % (34.2-44.1); HEMOGLOBIN 13.2 g/dL (12.0-16.0); LYMPHOCYTES # (AUTO) 0.9 (1.0-3.2); LYMPHOCYTES % 8.4 % (18.0-39.1); MEAN CORPUSCULAR HEMOGLOBIN 35.2 pg (28-32); MEAN CORPUSCULAR VOLUME 103.5 fL (81-99); MONOCYTES # (AUTO) 0.9 (0.2-0.8); MONOCYTES % 8.7 % (4.4-11.3); NEUTROPHILS # (AUTO) 8.4 (2.1-6.9); PLATELET COUNT 236 x10e3/uL (140-360); RED BLOOD COUNT 3.75 x10e6/uL (3.6-5.1); RED CELL DISTRIBUTION WIDTH 13.8 % (11.7-14.4)
[2022-07-10 12:28] LABS: ANION GAP 18.3 mmol/L (8-16); CALCIUM 9.1 mg/dL (8.4-10.2); CREATININE, SERUM 0.84 mg/dL (0.57-1.11); POTASSIUM 4.3 mmol/L (3.5-5.1)
[2022-07-10 12:29] LABS: ALBUMIN 3.9 g/dL (3.5-5.0)
[2022-07-10] MEDS: Morphine 4mg INJECTION 4 MG/ML INJ IV PRN ×3 (13:06→22:17)
[2022-07-10] MEDS: ONDANSETRON HCL INJ 2MG/ML 2ML 2 MG/ML VIAL IV PRN ×2 (13:06→22:17)
[2022-07-10] MEDS ORDERED: LOSARTAN POTASS25 MG PO (15:13)
[2022-07-10] MEDS ORDERED: AMITRIPTYLINE H25 MG PO (15:13)
[2022-07-10] MEDS ORDERED: LYRICA50 MG PO (15:13)
[2022-07-10] MEDS ORDERED: metoprolol ER PO (15:13)
[2022-07-10] MEDS ORDERED: potassium PO (15:13)
[2022-07-10 15:18] VITALS: BP 138/77
[2022-07-10 15:23] VITALS: BP 138/77
[2022-07-10 16:13] VITALS: BP 138/77
[2022-07-10 20:00] VITALS: BP 127/82
[2022-07-10 20:28] VITALS: BP 127/82
[2022-07-10] MEDS: TEMAZEPAM 15 MG CAP PO PRN (21:04)
[2022-07-11] VITALS (8 sets, daily range): BP systolic 125–155; BP diastolic 76–88
[2022-07-11] MEDS: ONDANSETRON HCL INJ 2MG/ML 2ML 2 MG/ML VIAL IV PRN (04:10)
[2022-07-11] MEDS: Morphine 4mg INJECTION 4 MG/ML INJ IV PRN ×5 (04:12→21:35)
[2022-07-11] MEDS: PREGABALIN 50 MG CAP PO SCH (08:59)
[2022-07-11] MEDS: AMLODIPINE BESYLATE 5 MG TAB PO SCH (08:59)
[2022-07-11] MEDS: TEMAZEPAM 15 MG CAP PO PRN (20:16)
[2022-07-11] MEDS: AMITRIPTYLINE HCL 25 MG TAB PO SCH (20:16)
[2022-07-12] VITALS (8 sets, daily range): BP systolic 123–155; BP diastolic 80–90
[2022-07-12] MEDS: Morphine 4mg INJECTION 4 MG/ML INJ IV PRN ×6 (01:28→22:30)
[2022-07-12] MEDS ORDERED: ALBUTEROL/IPRATROPIUM 3 ML NEB NEB PRN (05:00)
[2022-07-12 06:35] LABS: ALBUMIN 3.9 g/dL (3.5-5.0); CALCIUM 9.2 mg/dL (8.4-10.2); CREATININE, SERUM 0.8 mg/dL (0.57-1.11); MAGNESIUM 2.2 MG/DL (1.3-2.1)
[2022-07-12] MEDS: PREGABALIN 50 MG CAP PO SCH (10:00)
[2022-07-12] MEDS: AMLODIPINE BESYLATE 5 MG TAB PO SCH (10:00)
[2022-07-12] MEDS: TEMAZEPAM 15 MG CAP PO PRN (20:22)
[2022-07-12] MEDS: AMITRIPTYLINE HCL 25 MG TAB PO SCH (20:22)
[2022-07-13] VITALS (8 sets, daily range): BP systolic 118–157; BP diastolic 84–93
[2022-07-13] MEDS: Morphine 4mg INJECTION 4 MG/ML INJ IV PRN ×5 (02:30→20:21)
[2022-07-13] MEDS: PREGABALIN 50 MG CAP PO SCH (08:21)
[2022-07-13] MEDS: AMLODIPINE BESYLATE 5 MG TAB PO SCH (08:21)
[2022-07-13] MEDS: TIZANIDINE HCL 4 MG TAB PO PRN (08:24)
[2022-07-13] MEDS: DILTIAZEM HCL 180 MG CAP ER PO SCH (12:30)
[2022-07-13] MEDS: TEMAZEPAM 15 MG CAP PO PRN (20:18)
[2022-07-13] MEDS: AMITRIPTYLINE HCL 25 MG TAB PO SCH (20:24)
[2022-07-14] VITALS (7 sets, daily range): BP systolic 106–157; BP diastolic 62–84
[2022-07-14] MEDS: Morphine 4mg INJECTION 4 MG/ML INJ IV PRN ×5 (01:27→21:26)
[2022-07-14] MEDS: AMLODIPINE BESYLATE 5 MG TAB PO SCH (08:31)
[2022-07-14] MEDS: PREGABALIN 50 MG CAP PO SCH (08:32)
[2022-07-14] MEDS: METOPROLOL SUCCINATE 50 MG TAB XL PO SCH (08:32)
[2022-07-14] MEDS: LOSARTAN POTASSIUM 25 MG TAB PO SCH (08:34)
[2022-07-14] MEDS: DILTIAZEM HCL 180 MG CAP ER PO SCH (11:30)
[2022-07-14] MEDS ORDERED: ONDANSETRON HCL 4 MG ORAL DISINTEGRATING TAB PO PRN (13:45)
[2022-07-14 15:20] LABS: BASOPHILS % 0.1 % (0.0-1.0); EOSINOPHILS % 0.6 % (0.0-6.0); HEMATOCRIT 37.9 % (34.2-44.1); HEMOGLOBIN 12.1 g/dL (12.0-16.0); LYMPHOCYTES # (AUTO) 0.8 (1.0-3.2); LYMPHOCYTES % 11.3 % (18.0-39.1); MEAN CORPUSCULAR HEMOGLOBIN 34.9 pg (28-32); MEAN CORPUSCULAR HGB CONC 31.9 g/dL (31-35); MEAN CORPUSCULAR VOLUME 109.2 fL (81-99); MONOCYTES # (AUTO) 0.6 (0.2-0.8); MONOCYTES % 8.8 % (4.4-11.3); NEUTROPHILS # (AUTO) 5.6 (2.1-6.9); NEUTROPHILS % 77.4 % (38.7-80.0); PLATELET COUNT 178 x10e3/uL (140-360); RED BLOOD COUNT 3.47 x10e6/uL (3.6-5.1); RED CELL DISTRIBUTION WIDTH 14.5 % (11.7-14.4)
[2022-07-14 15:32] LABS: INR 0.89; PROTHROMBIN TIME 12.2 seconds (11.9-14.5)
[2022-07-14 15:36] LABS: ANION GAP 14.5 mmol/L (8-16); CALCIUM 9.2 mg/dL (8.4-10.2); CREATININE, SERUM 0.71 mg/dL (0.57-1.11)
[2022-07-14 15:40] LABS: POTASSIUM 5.5 mmol/L (3.5-5.1)
[2022-07-14] MEDS: TEMAZEPAM 15 MG CAP PO PRN (21:25)
[2022-07-14] MEDS: AMITRIPTYLINE HCL 25 MG TAB PO SCH (21:25)
[2022-07-15] MEDS: Morphine 4mg INJECTION 4 MG/ML INJ IV PRN ×4 (01:58→18:40)
[2022-07-15 04:38] VITALS: BP 146/90
[2022-07-15 08:15] VITALS: BP 122/69
[2022-07-15] MEDS ORDERED: LIDOCAINE 1% 10 ML MULTIDOSE VIAL IJ ONE (08:17)
[2022-07-15] MEDS ORDERED: SODIUM CHLORIDE 0.9% 250ML 250 ML ONE (08:17)
[2022-07-15] MEDS: LOSARTAN POTASSIUM 25 MG TAB PO SCH (09:00)
[2022-07-15] MEDS: DILTIAZEM HCL 180 MG CAP ER PO SCH (09:00)
[2022-07-15] MEDS: AMLODIPINE BESYLATE 5 MG TAB PO SCH (09:00)
[2022-07-15] MEDS ORDERED: FENTANYL CITRATE/PF 100MCG/2 ML INJ ONE ×2 (11:30→12:33)
[2022-07-15] MEDS ORDERED: ONDANSETRON HCL INJ 2MG/ML 2ML 2 MG/ML VIAL ONE (12:12)
[2022-07-15] MEDS ORDERED: ROCURONIUM BROMIDE 10 MG/ML 5ML VIAL IV ONE (12:12)
[2022-07-15] MEDS ORDERED: PROPOFOL IV EMULSION 10 MG/ML 20 ML VIAL ONE (12:12)
[2022-07-15] MEDS ORDERED: PHENYLEPHRINE HCL 1% 10 MG/ML VIAL ONE (12:12)
[2022-07-15] MEDS ORDERED: LIDOCAINE HCL 2% LOCAL INJ 5 ML SDV VIAL INJ ONE (12:12)
[2022-07-15] MEDS ORDERED: GLYCOPYRROLATE INJ 0.2 MG/ML VIAL ONE (12:12)
[2022-07-15] MEDS ORDERED: POVIDONE IODINE 0.05% 0.05 % ML PO ONE (12:12)
[2022-07-15] MEDS ORDERED: SEVOFLURANE INHAL SOLN 250 ML PEN BTL ONE (12:12)
[2022-07-15] MEDS ORDERED: DEXAMETHASONE SOD PHOS INJ 4 MG/ML SDV ONE (12:12)
[2022-07-15] MEDS ORDERED: NEOSTIGMINE 1 MG/ML 10ML VIAL ONE (12:12)
[2022-07-15] MEDS ORDERED: KETAMINE HCL INJ 50 MG/ML 10 ML VIAL ONE (12:33)
[2022-07-15] MEDS ORDERED: MIDAZOLAM HCL 2 MG/2 ML VIAL ONE (12:33)
[2022-07-15 16:14] VITALS: BP 155/79
[2022-07-15] MEDS: PREGABALIN 50 MG CAP PO SCH (16:17)
[2022-07-15] MEDS: METOPROLOL SUCCINATE 50 MG TAB XL PO SCH (16:18)
[2022-07-15] MEDS: TIZANIDINE HCL 4 MG TAB PO PRN (16:26)
[2022-07-15 20:00] VITALS: BP 120/85
[2022-07-15] MEDS: AMITRIPTYLINE HCL 25 MG TAB PO SCH (20:33)
[2022-07-16] MEDS: LEVOFLOXACIN 500 MG TAB PO SCH (04:24)
[2022-07-16] MEDS: Morphine 4mg INJECTION 4 MG/ML INJ IV PRN ×4 (06:27→20:09)
[2022-07-16 08:25] VITALS: BP 148/88
[2022-07-16] MEDS: LOSARTAN POTASSIUM 25 MG TAB PO SCH (08:34)
[2022-07-16] MEDS: DILTIAZEM HCL 180 MG CAP ER PO SCH (08:34)
[2022-07-16] MEDS: PREGABALIN 50 MG CAP PO SCH (08:34)
[2022-07-16] MEDS: AMLODIPINE BESYLATE 5 MG TAB PO SCH (08:34)
[2022-07-16] MEDS: METOPROLOL SUCCINATE 50 MG TAB XL PO SCH (08:35)
[2022-07-16 08:48] VITALS: BP 148/88
[2022-07-16 11:58] VITALS: BP 117/79
[2022-07-16 16:10] VITALS: BP 125/74
[2022-07-16] MEDS: TIZANIDINE HCL 4 MG TAB PO PRN (18:15)
[2022-07-16 20:00] VITALS: BP 101/64
[2022-07-16] MEDS: AMITRIPTYLINE HCL 25 MG TAB PO SCH (20:09)
[2022-07-16 20:48] VITALS: BP 101/64
[2022-07-17 01:10] VITALS: BP 134/79
[2022-07-17] MEDS: LEVOFLOXACIN 500 MG TAB PO SCH (04:26)
[2022-07-17] MEDS: Morphine 4mg INJECTION 4 MG/ML INJ IV PRN ×2 (04:27→08:32)
[2022-07-17 05:08] VITALS: BP 142/85
[2022-07-17 05:56] LABS: ALBUMIN 3.3 g/dL (3.5-5.0); ALBUMIN/GLOBULIN RATIO 0.9 (0.8-2.0); CREATININE, SERUM 0.74 mg/dL (0.57-1.11)
[2022-07-17 08:21] VITALS: BP 121/80
[2022-07-17] MEDS: METOPROLOL SUCCINATE 50 MG TAB XL PO SCH (08:30)
[2022-07-17] MEDS: LOSARTAN POTASSIUM 25 MG TAB PO SCH (08:31)
[2022-07-17] MEDS: PREGABALIN 50 MG CAP PO SCH (08:31)
[2022-07-17] MEDS: DILTIAZEM HCL 180 MG CAP ER PO SCH (08:31)
[2022-07-17] MEDS: AMLODIPINE BESYLATE 5 MG TAB PO SCH (08:31)
[2022-07-17 08:39] VITALS: BP 121/80
[2022-07-17] MEDS ORDERED: Morphine 4mg INJECTION 4 MG/ML INJ IV ONE (13:30)
== END 2022-07-17 14:38 | disposition home or self-care (01) | DRG 516 ==
LOC: ER 10:42 → ERHOLD 10:43 → ER 10:43 → INTOOBSV 10:43 → MED/SURG3 14:49 → OBSVTOIN 07-11 08:05
PROVIDERS: ADMIT Internal Medicine; ATTEND Internal Medicine
PROC: XNU0356 Supplement Lumbar Vertebra with Mechanically Expandable (Paired) Synthetic Substitute, Percutaneous Approach, New Technology Group 6 (ICD-10-PCS; 2022-07-15)
PROC: XNU0356 Supplement Lumbar Vertebra with Mechanically Expandable (Paired) Synthetic Substitute, Percutaneous Approach, New Technology Group 6 (ICD-10-PCS; principal; 2022-07-15 09:00)
DX: S32.030A Wedge compression fracture of third lumbar vertebra, initial encounter for closed fracture (principal); E87.1 Hypo-osmolality and hyponatremia; I42.9 Cardiomyopathy, unspecified; M87.852 Other osteonecrosis, left femur; M87.851 Other osteonecrosis, right femur; S32.040A Wedge compression fracture of fourth lumbar vertebra, initial encounter for closed fracture; I11.0 Hypertensive heart disease with heart failure; M54.31 Sciatica, right side; R53.1 Weakness; M48.061 Spinal stenosis, lumbar region without neurogenic claudication; R79.89 Other specified abnormal findings of blood chemistry; M25.552 Pain in left hip; M25.551 Pain in right hip; K76.0 Fatty (change of) liver, not elsewhere classified; I50.9 Heart failure, unspecified; I48.91 Unspecified atrial fibrillation; F41.9 Anxiety disorder, unspecified; F32.A Depression, unspecified; Y93.01 Activity, walking, marching and hiking; W19.XXXA Unspecified fall, initial encounter; Z90.49 Acquired absence of other specified parts of digestive tract; Z79.899 Other long term (current) drug therapy; Z90.710 Acquired absence of both cervix and uterus; Z87.311 Personal history of (healed) other pathological fracture
CPT/HCPCS: 22514; 36415; 72148; 74470; 80048; 80053; 83735; 85025; 85610; 94799; 99252; 99284; G0378; J0690; J1100; J2001; J2250; J2270; J2370; J2405; J2710; J3010; J7050; Q0162